=== PATIENT | female | born 1955 | race Two or more races ===

== ENCOUNTER 2016-06-01 17:47 | Emergency (ER) | payer MEDICAID ==
[~2016-06-01] VITALS: Ht 149.9 cm; Wt 69.4 kg
[2016-06-01] MEDS ORDERED: LIDOCAINE VISCOUS 2% 15ML UD PO ONE (20:15)
[2016-06-01] MEDS ORDERED: ONDANSETRON ODT 4 MG TAB PO ONE (20:15)
[2016-06-01] MEDS ORDERED: DONNATAL 5ml ORAL Elix (BELLADONNA ALK-PHENOBARB) PO ONE (20:15)
[2016-06-01] MEDS ORDERED: ALUM & MAG HYDROX-SIMETH LIQ(MAALOX) 30 ML PO ONE (20:15)
[2016-06-01 20:50] LABS: Basophils # (auto) 0 uL; Basophils % (auto) 0.5 % (0.0-2.0); Eosinophils # (auto) 0.3 uL; Eosinophils % (auto) 4.4 % (0.0-7.0); Hematocrit 43.4 % (36.0-46.0); Hemoglobin 14.6 g/dL (12.2-16.2); Lymphocytes # (auto) 2.9 uL; Lymphocytes % (auto) 42.7 % (10.0-50.0); Mean Corpuscular Hemoglobin 29.4 pg (28.0-32.0); Mean Corpuscular Hgb Conc. 33.8 g/dL (32.0-36.0); Mean Corpuscular Volume 87.2 fL (80.0-100.0); Mean Platelet Volume 9.4 fL (7.4-10.4); Monocytes # (auto) 0.7 uL; Monocytes % (auto) 9.5 % (0.0-12.0); Neutrophils % (auto) 42.9 % (37.0-80.0); Platelet Count (auto) 200 10^3/uL (140-450); Red Cell Distribution Width 13.4 % (11.6-16.0); White Blood Cell 6.9 10^3/uL (4.4-10.8)
[2016-06-01 21:07] LABS: BUN/Creatinine Ratio 9.6; Calcium 8.7 mg/dL (8.5-10.1); Potassium 4.2 mmol/L (3.5-5.1)
[2016-06-01 21:10] LABS: Bilirubin, Total 0.5 mg/dL (0.2-1.0); Total Protein 7.9 g/dL (6.4-8.2)
== END 2016-06-01 21:37 | disposition home or self-care (01) ==
LOC: ER 18:07
DX: K52.9 Noninfective gastroenteritis and colitis, unspecified (principal); K29.00 Acute gastritis without bleeding
CPT/HCPCS: 36415; 80053; 83690; 85025; 93005; 99285; Q0162

== ENCOUNTER 2023-03-06 12:28 | Emergency (ER) | payer OTHER ==
[~2023-03-06] VITALS: Ht 152.4 cm; Wt 71.8 kg
[2023-03-06 14:39] VITALS: BP 16/64; PULSE 73; RESP 18; TEMP 97.6; O2SAT 98
[2023-03-06] MEDS ORDERED: CEPH500C PO (15:11)
[2023-03-06] MEDS ORDERED: IBUP-1456 PO (15:11)
[2023-03-06] MEDS ORDERED: ACETAMINOPHEN 500 MG TAB PO ONE (15:15)
== END 2023-03-06 15:13 | disposition home or self-care (01) ==
LOC: ER 12:28
DX: L03.031 Cellulitis of right toe (principal); B35.1 Tinea unguium; Z79.899 Other long term (current) drug therapy

== ENCOUNTER 2023-07-12 06:27 | Inpatient (IN) | payer OTHER ==
[~2023-07-12] VITALS: Ht 160 cm; Wt 73.6 kg
[~2023-07-12 06:27] MED LIST: ATE50T PO; ATOR10TA PO; LEVO88TA4 PO; LOSA-534 PO
[2023-07-12] MEDS: ACETAMINOPHEN IV 100 ML IV ONE (06:47)
[2023-07-12] MEDS: EPINEPHrine HCL 1 MG/1 ML AMP ONE (06:55)
[2023-07-12] MEDS: BUPIVACAINE HCL 50 ML ONE (06:55)
[2023-07-12] MEDS: DexAMETHasone SOD PHOS 4 MG/1ML SDV INJ ONE (06:55)
[2023-07-12] MEDS ORDERED: LIDOCAINE 1% INJ PF 5ML AMP ONE (07:05)
[2023-07-12] MEDS ORDERED: ONDANSETRON HCL 4 MG/2 ML VIAL ONE (07:05)
[2023-07-12] MEDS ORDERED: DexAMETHasone SOD PHOS 10MG/1ML VIAL INJ ONE (07:05)
[2023-07-12] MEDS ORDERED: PROPOFOL 10 MG/ML 20 ML IV ONE ×2 (07:06→11:00)
[2023-07-12] MEDS ORDERED: GLYCOPYRROLATE 0.2 MG/ML 1ML VIAL ONE (07:06)
[2023-07-12] MEDS: ACETAMINOPHEN IV 1000 MG/100ML (10MG/ML) IV ONE (07:10)
[2023-07-12] MEDS: PREGABALIN CAPSULE 75 MG CAP PO ONE (07:10)
[2023-07-12] MEDS: CELECOXIB 100 MG CAP PO ONE (07:10)
[2023-07-12] MEDS ORDERED: KETAMINE 50mg/ML 1ml syringe ONE (07:13)
[2023-07-12] MEDS ORDERED: KETOROLAC TROMETH 30 MG/ML 1ML VIAL ONE (07:13)
[2023-07-12] MEDS: ceFAZolin 2 GM/D5W50ml 50 ML IV ONE (09:16)
[2023-07-12] MEDS: TRANEXAMIC ACID 20 ML ONE (09:20)
[2023-07-12] MEDS ORDERED: ePHEDrine SULFATE 50 MG/ML AMP ONE (09:33)
[2023-07-12] MEDS: VANCOMYCIN HCL 1000 MG VL ONE (10:55)
[2023-07-12] MEDS: KETOROLAC TROMETH 30 MG/ML 1ML VIAL ONE (10:56)
[2023-07-12] MEDS: MORPHINE SULF PF 5 MG/10 ML VIAL ONE (10:56)
[2023-07-12] MEDS: BUPIVACAINE 0.25% INJ 50ML VIAL ONE (10:56)
[2023-07-12 11:30] VITALS: O2SAT 100
[2023-07-12] MEDS ORDERED: LABETALOL HCL 5 MG/ML 4ML SYRINGE IV PRN (11:45)
[2023-07-12] MEDS ORDERED: NALOXONE HCL 0.4 MG/ML VIAL IV PRN (11:45)
[2023-07-12] MEDS ORDERED: fentaNYL CITRATE 100 MCG/2 ML VL IV PRN (11:45)
[2023-07-12] MEDS ORDERED: FLUMAZENIL 0.1 MG/ML INJ 10ML MDV IV PRN (11:45)
[2023-07-12] MEDS ORDERED: hydrALAZINE HCL 20 MG/ML VL IV PRN (11:45)
[2023-07-12] MEDS ORDERED: ePHEDrine SULFATE 50 MG/ML AMP IV PRN (11:45)
[2023-07-12] MEDS ORDERED: HYDROmorphone HCL 2 MG/ML VL/or syr IV PRN (11:45)
[2023-07-12] MEDS ORDERED: ONDANSETRON HCL 4 MG/2 ML VIAL IV PRN (11:45)
[2023-07-12] MEDS ORDERED: NITROGLYCERIN 0.4 MG SL TAB SL PRN (12:45)
[2023-07-12] MEDS ORDERED: ceFAZolin 1GM/50ML 50 ML IV SCH ×2 (12:45→14:00)
[2023-07-12 14:21] VITALS: BP 135/69; PULSE 62; RESP 18; TEMP 97.4; O2SAT 95
[2023-07-12 14:57] VITALS: BP 135/69; PULSE 62; RESP 18; TEMP 97.4; O2SAT 95
[2023-07-12] MEDS: ceFAZolin 1GM/50ML 50 ML IV SCH (15:35)
[2023-07-12 17:00] VITALS: BP 142/84; PULSE 58; RESP 18; TEMP 97.3; O2SAT 96
[2023-07-12 18:11] LABS: Basophils # (auto) 0 10 ^3/uL (0-0.2); Basophils % (auto) 0.1 % (0.0-2.0); Eosinophils # (auto) 0 10 ^3/uL (0-0.8); Hematocrit 43.4 % (36.0-46.0); Hemoglobin 14.6 g/dL (12.2-16.2); Lymphocytes # (auto) 0.8 10 ^3/uL (0.4-5.4); Lymphocytes % (auto) 7.4 % (10.0-50.0); Mean Corpuscular Hgb Conc. 33.7 g/dL (32.0-36.0); Mean Corpuscular Volume 89.2 fL (80.0-100.0); Monocytes # (auto) 0.2 10 ^3/uL (0-1.3); Monocytes % (auto) 1.5 % (0.0-12.0); Neutrophils # (auto) 9.9 10 ^3/uL (1.6-8.6); Red Blood Cells 4.86 10^6/uL (4.0-5.20); Red Cell Distribution Width 13.5 % (11.8-14.3); White Blood Cell 10.9 10^3/uL (4.4-10.8)
[2023-07-12 18:27] LABS: Alanine Aminotransferase 16 U/L (7-40); Albumin 4.5 g/dL (3.2-4.8); Alkaline Phosphatase 82 U/L (46-116); Anion Gap 8 (5-15); Aspartate Aminotransferase 31 U/L (13-40); BUN/Creatinine Ratio 11.8 (10.0-20.0); Blood Urea Nitrogen 10 mg/dL (9-23); Calcium 9.4 mg/dL (8.5-10.1); Carbon Dioxide 26 mmol/L (20-30); Chloride 107 mmol/L (98-107); Cholesterol 158 mg/dL (< 200); Glucose 175 mg/dL (74-106); HDL Cholesterol 45 mg/dL (40-59); LDL Cholesterol 106 mg/dL (< 100); Potassium 3.9 mmol/L (3.5-5.1); Sodium 141 mmol/L (136-145); Triglycerides 65 mg/dL (< 150)
[2023-07-12 18:28] LABS: Bilirubin, Total 0.7 mg/dL (0.2-1.0)
[2023-07-12 20:00] VITALS: BP 136/73; PULSE 93; RESP 18; TEMP 98.3; O2SAT 98
[2023-07-12 21:00] VITALS: BP 136/73; PULSE 93; RESP 18; TEMP 98.3; O2SAT 98
[2023-07-13] VITALS (8 sets, daily range): BP systolic 101–142; BP diastolic 42–70; PULSE 39–89; RESP 17–20; TEMP 98–98.7; O2SAT 94–100
[2023-07-13 06:30] LABS: Hematocrit 38.6 % (36.0-46.0); Hemoglobin 12.7 g/dL (12.2-16.2)
[2023-07-13] MEDS: LEVOTHYROXINE SODIUM 88 MCG TAB PO SCH (08:31)
[2023-07-13] MEDS: ATORVASTATIN 20 MG TAB PO SCH (08:31)
[2023-07-13] MEDS: ENOXAPARIN SOD 40 MG/0.4 ML SYRINGE SC SCH (08:32)
[2023-07-13] MEDS: LOSARTAN POTASSIUM 50 MG TAB PO SCH (08:32)
[2023-07-13] MEDS: ATENOLOL 25 MG TAB PO SCH (08:32)
[2023-07-13] MEDS: oxyCODONE HCL 5MG TAB PO PRN (08:43)
[2023-07-13] MEDS ORDERED: POLYETHYLENE GLYCOL 17 GM PWDR PO PRN (16:30)
[2023-07-14] VITALS (7 sets, daily range): BP systolic 107–136; BP diastolic 61–68; PULSE 56–67; RESP 16–20; TEMP 97.6–98.5; O2SAT 95–98
[2023-07-14] MEDS ORDERED: HYDROcodone-ACET 5/325MG TAB PO PRN (00:30)
[2023-07-14] MEDS: HYDROcodone-ACET 5/325MG TAB PO PRN (01:06)
[2023-07-15 05:00] VITALS: BP 138/78; PULSE 71; RESP 19; TEMP 97.8; O2SAT 96
[2023-07-15 06:45] LABS: Hemoglobin 12.7 g/dL (12.2-16.2)
[2023-07-15 08:44] LABS: Hepatitis B Surface Antigen Negative (Negative)
[2023-07-15 09:00] VITALS: BP 121/64; PULSE 68; RESP 17; TEMP 98.3; O2SAT 97
[2023-07-15 09:06] LABS: Hepatitis C Antibody Negative (Negative)
== END 2023-07-15 13:00 | disposition home health service (06) | DRG 470 ==
LOC: SUR 06:27 → OVERFLOW 12:40 → EAST 14:18
PROVIDERS: ADMIT Orthopaedic Surgery; ATTEND Student in an Organized Health Care Education/Training Program
PROC: 8E0YXBZ Computer Assisted Procedure of Lower Extremity (ICD-10-PCS; 2023-07-12)
PROC: 0SRD0J9 Replacement of Left Knee Joint with Synthetic Substitute, Cemented, Open Approach (ICD-10-PCS; principal; 2023-07-12 09:16)
DX: M17.12 Unilateral primary osteoarthritis, left knee (principal); E03.9 Hypothyroidism, unspecified; E78.5 Hyperlipidemia, unspecified; D72.829 Elevated white blood cell count, unspecified; I10 Essential (primary) hypertension; Z82.49 Family history of ischemic heart disease and other diseases of the circulatory system; Z79.899 Other long term (current) drug therapy
CPT/HCPCS: 36415; 73562; 80053; 80061; 83036; 84443; 85014; 85018; 85025; 86803; 86850; 86900; 86901; 87340; 97110; 97116; 97163; 97530; G0378; J0131; J0171; J1100; J1885; J2405; J2704; J3490